=== PATIENT | female | born 1990 | race Caucasian/White ===

== ENCOUNTER 2017-08-01 05:47 | Inpatient (IN) ==
[2017-08-01] MEDS ORDERED: Naloxone 0.4 MG/ML INJ IVP PRN (05:48)
[2017-08-01] MEDS ORDERED: Famotidine 20 MG/2 ML VIAL IVP PRN (05:48)
[2017-08-01] MEDS ORDERED: Metoclopramide 10 MG/2 ML VIAL IVP PRN ×2 (05:48→11:45)
[2017-08-01] MEDS ORDERED: Ringers Solution, Lactated 1,000 ML IVC ONE (05:50)
[2017-08-01] MEDS ORDERED: Ringers Solution, Lactated 1,000 ML IVC SCH (06:00)
--- NOTE | 2017-08-01 06:06 | OB/GYN History & Physical ---
Date of Encounter: 08/01/17 Time of Encounter: 06:53 Assessment and Plan (1) History of 2 sections Current visit: Yes Status: Acute Patient has a history of 2 prior C-Sections. Presents to L&D today for a repeat with Dr. Petty LR bolus followed by 125ml/hr CBC UDS Consult to anesthesia for spinal for . Monitoring Plan for with Dr. Petty (2) 39 weeks gestation of Current visit: Yes Status: Acute Patient is 39w0d. Plan for with Dr. Petty History of Present Illness Chief complaint: Repeat C section HPI: Ms. Albarran is a 27 year old female at 39w0d presents to L&D for a repeat C- Section. She states that she has had two previous C Sections so she was scheduled for a repeat C section today with Dr. Petty. Patient states that she has has a couple of contractions since she has been here but has not timed them. Denies any loss of fluid, vaginal bleeding or discharge. Denies any complications with the . Reports good movement. States that she see Dr. Petty in the office. Blood type O positive GBS Negative Rubella I gG Antibody Positive VZV IgG antibody Positive Hep Bs antigen Nonreactive HPV high risk Negative Past Med Surg Social Fam HX - Past Medical History Attestation: Yes The following information was validated with the patient. Source: patient Medical history: no medical history - Past Surgical History Surgical History: (X 2) - Social History Smoking Status: Never smoker Alcohol use: none Drug use: none Obstetrical History - Pregnancies : 3 Para: 2 Term: 2 : 0 Ab's: 0 Livin - History/Complications History/Complications: Patient has had two previous C-Sections Medications and Allergies Vit #108/Iron/FA [ One Tablet] 1 tab PO DAILY 08/01/17 [History ] 3 Allergy/AdvReac Type Severity Reaction Status Date / Time No Known Allergies Allergy Verified 08/01/17 06:07 Review of System OB All systems PM: reviewed and no additional remarkable complaints except as stated - Constitutional Constitutional ROS IM: headache(s) (States she had a mild headache this morning but it has resolved) Exam - Constitutional Constitutional: well developed, well nourished, no acute distress, average body habitus - HEENT HEENT: Normocephaly, Mucus Membranes Moist - Neck Neck exam: full ROM - Lungs Respiratory exam: CTAB - Cardiovascular Cardiovascular exam: RRR, +S1, +S2 - Abdomen Abdomen: Present: bowel sounds normal, gravid, non tender - Extremities Extremities exam: full ROM, normal capillary refill, normal inspection Results All other labs normal.
[2017-08-01 06:44] LABS: Basophils % 0.3 %; Eosinophils # 0.1 K/mcL (0.0-0.6); Hematocrit 40.7 % (35.3-44.9); Hemoglobin 13.8 g/dL (11.5-15.4); Lymphocytes # 2.2 K/mcL (0.6-4.6); Lymphocytes % 18.4 %; Mean Corpuscular HGB Conc 33.9 g/dL (31.6-35.5); Mean Corpuscular Hemoglobin 30.4 pg (28.0-33.3); Mean Corpuscular Volume 89.6 fL (83.0-100.0); Mean Platelet Volume 10.9 fL (9.4-12.4); Monocytes # 0.5 K/mcL (0.0-1.3); Monocytes % 4.5 %; Neutrophils # 8.8 K/mcL (1.6-8.9); Platelet Count 219 K/mcL (140-400); Red Blood Count 4.54 M/mcL (3.82-4.97); Red Cell Distribution Width 13.3 % (11.5-14.5); Segmented Neutrophils % 74.8 %
[2017-08-01 06:56] LABS: Amphetamine Screen,Urine Negative ng/mL (Cutoff=1000); Barbiturate Screen,Urine Negative ng/mL (Cutoff=200); Benzodiazepines Screen,Urine Negative ng/mL (Cutoff=200); Cannabinoid Screen,Urine Negative ng/mL (Cutoff = 50); Cocaine Screen,Urine Negative ng/mL (Cutoff= 300); Opiate Screen,Urine Negative ng/mL (Cutoff=300); Phencyclidine Screen,Urine Negative ng/mL (Cutoff=25)
[2017-08-01] MEDS ORDERED: *HR* Promethazine 25 MG/ML VIAL IVP PRN (07:16)
[2017-08-01] MEDS ORDERED: *HR* HYDROmorphone (PF) 1 MG/ML SYRINGE IVP PRN ×2 (07:16→11:45)
[2017-08-01] MEDS ORDERED: *HR* Meperidine 25 MG/ML SYRINGE IVP PRN (07:16)
--- NOTE | 2017-08-01 07:16 | Anesthesia Evaluation PreOp ---
Date of Encounter: 08/01/17 Time of Encounter: 07:14 - Past History Planned Operation: repeat Cardiac History: Denies any Significant Hx Pulmonary History: Denies Any Significant HX AIRLINE STATION AGENT History: Denies Any Significant HX Other Medical History: Denies Any Significant HX Anesthesia History: No Prior Anesthetic Complications, Past Anesthesia Alcohol Use: none Drug use: none Medications and Allergies Vit #108/Iron/FA [ One Tablet] 1 tab PO DAILY 08/01/17 [History ] 3 Allergy/AdvReac Type Severity Reaction Status Date / Time No Known Allergies Allergy Verified 08/01/17 06:07 Anesthesia Results - Labs 08/01/17 06:29 Anesthesia Exam - HEENT Pupil (Motor): Pupils equal Mallampati: II Teeth: Normal Oral Opening: Greater than 3 - AIRLINE STATION AGENT LOC: Oriented AIRLINE STATION AGENT Motor: Normal RUE, Normal LUE, Normal RLE, Normal LLE, Normal Face AIRLINE STATION AGENT Sensory: Normal: RUE, LUE, RLE, LLE, Face - Cardiac Rhythm: Regular Murmur: None - Pulmonary Breath Sounds: bilateral Clear Respiratory Effort: Symmetrical Anesthesia Assess/Plan ASA Score: 2 Modified Jaime Scale for Level of Consciousness: Cooperative, oriented, and tranquil Anesthetic Plan: General, Regional Monitoring Plan: Standard Monitors Recovery Plan: PACU
[2017-08-01] MEDS ORDERED: ceFAZolin 2,000 MG in Water for inj. (sterile) 20 ML IVP ONE (07:17)
[2017-08-01] MEDS ORDERED: Ringers Solution, Lactated 1,000 ML ONE (07:19)
[2017-08-01] MEDS ORDERED: *HR* Oxytocin 10 UNIT/ML VIAL IM ONE (07:20)
[2017-08-01] MEDS ORDERED: *HR* Morphine Sulfate/PF 5 MG/10 ML AMPUL ONE (07:20)
[2017-08-01] MEDS ORDERED: EPHEDrine 50 MG/ML VIAL ONE (07:20)
[2017-08-01] MEDS ORDERED: *HR* FentaNYL (PF) 100 MCG/2 ML VIAL ONE (07:21)
[2017-08-01] MEDS ORDERED: Ondansetron 4 MG/2 ML VIAL ONE (07:52)
--- NOTE | 2017-08-01 08:58 | OB/GYN Procedure Note ---
Section - Date of procedure: 08/01/17 Preop diagnosis: desires repeat Post-op diagnosis: same Procedure: repeat low transverse Surgeon: Daron Petty Quill Worker: Hilario Walker Service Observer Chief: Balaji Liu Anesthesia Type: Spinal section complications: none Disposition: L&D Recovery Room Specimens: Placenta, Cord blood - (s) A Delivery Date: 08/01/17 Infant Delivery Time: 08:22 Presentation: vertex Position: LOT Route of delivery: other Gender: Male Viability: Viable Pounds: 6 Ounces: 9 Gram Weight: 2975 kg at 1 minute: 9 at 5 minutes: 9 Shoulder Dystocia: not encountered Specimens collected: cord blood Placenta: complete extraction Cord: 3 umbilical vessels - Narrative Narrative: Patient was taken to the operating room and placed in supine position with left uterine displacement following the administration of spinal anesthetic. Skin was then prepped and draped in usual sterile fashion, and a timeout procedure was performed. A Pfannenstiel incision was performed through the previous surgical scar, and extended down to the fascial layer until the abdominal cavity was entered. A bladder flap was then gently created with sharp dissection. A low transverse uterine incision was performed and extended bilaterally with bandage scissors. The membranes were then ruptured with clear fluid present. A viable male infant was delivered from a vertex presentation with scores of 9 and 9 at 1 and 5 minutes respectively and the weighed 6 pounds and 9 ounces. The oral cavity was gently suctioned with bulb suction, the cord was clamped and cut, and the was handed to the nursery team. A sample of cord blood was obtained and the placenta was manually removed. The uterine cavity was wiped clean with wet lap sponge. The uterine incision was closed in a layered fashion with 0 Vicryl suture in a running locking fashion. Good hemostasis was noted. The Paracolic gutters were then gently wiped clean with wet lap sponge. Inspection was then performed with good hemostasis still noted. The fascial layer was closed with 0 PDS Stratafix suture in a running nonlocking fashion. The subcutaneous layer was irrigated with sterile water and then closed with 4-0 Vicryl suture in a running nonlocking fashion, and continuing to close the skin in a running subcuticular fashion. A piece of Dermabond mesh was then applied over the incision site. Patient tolerated procedure well, all sponge needle and instrument counts reported as correct. Estimated blood loss was 300 mL. The urine in the Gerber catheter was clear and yellow, and she was taken to recovery room in stable condition.
[2017-08-01] MEDS ORDERED: Oxytocin 20 units/ LR 1000 mL 20 UNIT/1,000 ML BAG IVC ONE (09:43)
--- NOTE | 2017-08-01 10:52 | Anesthesia Evaluation Post Op ---
Date of Encounter: 08/01/17 Time of Encounter: 10:50 - Vital Signs Vital Signs: vss - Lungs Lungs: Clear Ascult./Percussion - Airway Airway: Non-obstructed - Cardiovascular Baseline Rhythm - Mental Status Mental Status: Alert & Oriented, Answers Appropriately - Pain Pain Scale used: Linda (Faces) - Nausea Vomiting Nausea Vomiting: Not Present - Hydration Hydration: Gerber catheter - Discharge PostOp Status: Transfer Patient to floor
[2017-08-01] MEDS ORDERED: Sennosides 8.6 MG TABLET PO PRN (11:45)
[2017-08-01] MEDS ORDERED: Simethicone 80 MG TAB.CHEW PO PRN (11:45)
[2017-08-01] MEDS ORDERED: Oxytocin 20 units/ LR 1000 mL 20 UNIT/1,000 ML BAG IVC SCH (11:45)
[2017-08-01] MEDS ORDERED: *HR* Morphine 2 MG/ML SYRINGE IVP PRN (11:45)
[2017-08-01] MEDS ORDERED: Ondansetron 4 MG/2 ML VIAL IVP PRN (11:45)
[2017-08-01] MEDS ORDERED: Prenatal Vit/FA 1 EACH TABLET PO SCH (11:45)
[2017-08-01] MEDS: Ibuprofen 600 MG TABLET PO PRN ×2 (12:18→21:15)
[2017-08-01] MEDS ORDERED: Lanolin 7 G OINT...G. TP PRN (20:30)
[2017-08-02] MEDS: Ibuprofen 600 MG TABLET PO PRN ×2 (04:34→12:55)
--- NOTE | 2017-08-02 09:09 | OB/GYN Progress Note ---
Date of Encounter: 08/02/17 Time of Encounter: 09:06 - Assessment and Plan (1) Status post section Current Visit: Yes Status: Acute Patient is S/P C Section POD #1. Patient states that she is doing well. Patient has been up ambulating without issues. Tolerating PO with out issue. Patient reports that she has been urinating and passing flatus but denies having a bowel movement. States that she has had a small amount of bleeding. Mild discomfort to the abdomen states that it has been controlled with ibuprofen. Has been breast feeding and states that it has been going well Continue to pain medication for discomfort. Patient expressed that she would like to go home today if possible. If patient is feeling well tonight possible discharge. Otherwise discharge tomorrow. (2) Breast feeding status of mother Current Visit: Yes Status: Acute Patient is currently breast feeding and states that it is going well. Subjective - Subjective Principal diagnosis: S/P Interval history: Patient is S/P C Section POD #1. Patient states that she is doing well. Patient has been up ambulating without issues. Tolerating PO with out issue. Patient reports that she has been urinating and passing flatus but denies having a bowel movement. States that she has had a small amount of bleeding. Mild discomfort to the abdomen states that it has been controlled with ibuprofen. Has been breast feeding and states that it has been going well. I examined this patient and my medical decision-making was reviewed with the Resident Physician. I agree with the documented findings, disposition and treatment plan as described except to the extent set forth below. BHARATH Ghotra Patient reports: appetite normal, voiding normally, pain well controlled, ambulating normally [place]: doing well Objective - Vital Signs Latest vital signs: Vital Signs Temp Pulse Pulse Resp BP Pulse Ox 08/02/17 04:35 98.2 F 64 14 121/59 98 08/02/17 00:25 98.0 F 50 14 111/53 97 08/01/17 19:50 98.5 F 50 14 118/87 99 08/01/17 14:35 98.7 F 55 55 16 125/77 99 08/01/17 12:26 97.2 F L 52 16 142/77 08/01/17 12:15 98.0 F 66 66 16 147/81 99 08/01/17 11:45 97.7 F 53 53 16 140/75 99 Intake and Output 08/01/17 08/02/17 08/02/17 23:59 07:59 15:59 Intake Total 1500 / 1500 Output Total 550 / 550 4200 / 4200 800 / 800 Balance -550 / -550 -2700 / -2700 -800 / -800 Intake: Oral 1500 / 1500 Output: Urine 800 / 800 Catheter 550 / 550 4200 / 4200 Other: Weight 58.377 kg Patient Weight 08/02/17 23:59 Weight 58.377 kg - Exam Lungs: bilateral: normal Chest: Normal S1, Normal S2 Extremities: Present: normal Abdomen: Present: normal appearance, soft, tenderness (Mild diffuse tenderness) Incision: Present: dry, dressed Uterus: Present: firm
[2017-08-02] MEDS: *HR* OxyCODONE/APAP 5/325 TABLET PO PRN ×2 (09:58→14:57)
[2017-08-02 12:43] VITALS: BP 123/78
--- NOTE | 2017-08-02 16:05 | Discharge Summary ---
Date of Encounter: 08/02/17 Time of Encounter: 16:02 - Discharge Diagnosis (1) Status post section Priority: Primary Status: Acute Comments: Patient requesting discharge home patient doing well pain well controlled Patient to follow up with Dr. Petty in 2 weeks (2) Breast feeding status of mother Priority: Secondary Status: Acute Comments: support prn - Discharge Medications Prescriptions: OxyCODONE/APAP 5/325 [Percocet 5/325 MG] 1 each PO Q4HR PRN #30 tablet PRN Reason: Moderate pain 4-6 Ibuprofen [Motrin] 600 mg PO Q6HR PRN #60 tablet PRN Reason: Cramping Home Medications: Vit #108/Iron/FA [ One Tablet] 1 tab PO DAILY 08/01/17 [History ] Docusate [Colace] 100 mg PO BID capsule 08/02/17 [Rx] Ferrous Sulfate 325 mg PO DAILY tablet 08/02/17 [Rx] Ibuprofen [Motrin] 600 mg PO Q6HR PRN #60 tablet 08/02/17 [Rx] Lanolin [Lansinoh] 1 appl TP TID PRN oint...g. 08/02/17 [Rx] OxyCODONE/APAP 5/325 [Percocet 5/325 MG] 1 each PO Q4HR PRN #30 tablet 08/02/17 [Rx] Simethicone [Gas-X] 80 mg PO TID PRN tab.chew 08/02/17 [Rx] Allergies/Adverse Reactions: 3 Allergy/AdvReac Type Severity Reaction Status Date / Time No Known Allergies Allergy Verified 08/01/17 06:07 Data Procedures and tests throughout hospitalization: Laboratory Tests 08/01/17 08/01/17 06:29 06:29 WBC 11.8 H RBC 4.54 Hgb 13.8 Hct 40.7 MCV 89.6 MCH 30.4 MCHC 33.9 RDW 13.3 Plt Count 219 MPV 10.9 Immature Gran % 1.0 Seg Neutrophils % 74.8 Lymphocytes % 18.4 Monocytes % 4.5 Eosinophils % 1.0 Basophils % 0.3 Neutrophils # 8.8 Lymphocytes # 2.2 Monocytes # 0.5 Eosinophils # 0.1 Basophils # 0.0 Urine Opiates Screen Negative Ur Barbiturates Screen Negative Ur Phencyclidine Scrn Negative Ur Amphetamines Screen Negative U Benzodiazepines Scrn Negative Urine Cocaine Screen Negative U Marijuana (THC) Screen Negative Date of admission: 08/01/17 05:47 Primary care physician: PCP NONE Discharging clinician: Roula Kenyon Anticipated date of discharge: 08/02/17 - Patient Status Disposition: Home, Self-Care Condition: Good Functional capacity at discharge: independent ambulation - Discharge Instructions Follow Up With: NONE,PCP [Primary Care Provider] - Daron Petty DO [Partnered Physician] - - Diet and Activity Activity: increase activity as tolerated Diet: regular diet Hospital Course Procedures: [facility] report reviewed prior to discharge by BHARATH Ghotra Reason for admission: section Delivery: section Episiotomy: none Laceration: none Other procedures: none complications: none Discharge diagnosis: IUP at term delivered Only baby: male (breast feeding) Time Attestation: Total time spent providing and/or coordinating discharge services: Time Spent: Less than 30 minutes - VTE Documentation of Mechanical Device: Intermittent pneumatic compression device Exam - Constitutional Vitals: Temp Pulse Resp BP Pulse Ox 98.1 F 51 16 123/78 98 08/02/17 12:30 08/02/17 12:30 08/02/17 12:30 08/02/17 12:30 08/02/17 04:35 General appearance IM: A&O X 3, pleasant, answers questions appropriately - Respiratory Respiratory exam: Present: CTAB - Cardiovascular Cardiovascular exam IM: Present: RRR, +S1, +S2 - Uterine Tone: Firm Uterus Position: 1 Finger Below Umbilicus, Midline
== END 2017-08-02 17:23 | disposition home or self-care (01) | DRG 766 ==
LOC: 1NENULAB 05:47 → 1NENUOBS 12:02

== ENCOUNTER 2020-02-03 05:46 | Inpatient (IN) ==
[2020-02-03] MEDS ORDERED: Naloxone 0.4 MG/ML INJ IVP PRN (06:03)
[2020-02-03] MEDS ORDERED: Famotidine 20 MG/2 ML VIAL IVP PRN (06:03)
[2020-02-03] MEDS ORDERED: Metoclopramide 10 MG/2 ML VIAL IVP PRN ×2 (06:03→12:31)
[2020-02-03] MEDS ORDERED: ceFAZolin 2,000 MG in 0.9 % Sodium Chloride 100 ML IVPB ONE (06:05)
[2020-02-03] MEDS: Ringers Solution, Lactated 1,000 ML IVC SCH ×2 (06:34→07:40)
[2020-02-03 06:45] LABS: Basophils % 0.4 %; Eosinophils # 0.1 K/mcL (0.0-0.6); Eosinophils % 1.3 %; Hematocrit 39.2 % (35.3-44.9); Hemoglobin 13.5 g/dL (11.5-15.4); Immature Granulocytes % 0.6 % (0-4); Lymphocytes # 2.1 K/mcL (0.6-4.6); Lymphocytes % 19.6 %; Mean Corpuscular HGB Conc 34.4 g/dL (31.6-35.5); Mean Corpuscular Hemoglobin 31.8 pg (28.0-33.3); Mean Corpuscular Volume 92.5 fL (83.0-100.0); Mean Platelet Volume 9.4 fL (9.4-12.4); Monocytes # 0.6 K/mcL (0.0-1.3); Monocytes % 5.4 %; Neutrophils # 7.6 K/mcL (1.6-8.9); Platelet Count 240 K/mcL (140-400); Red Blood Count 4.24 M/mcL (3.82-4.97); Red Cell Distribution Width 13.2 % (11.5-14.5); Segmented Neutrophils % 72.7 %; White Blood Count 10.5 K/mcL (4.3-11.1)
[2020-02-03 08:23] LABS: Amphetamine Screen,Urine Negative ng/mL (Cutoff=1000); Barbiturate Screen,Urine Negative ng/mL (Cutoff=200); Benzodiazepines Screen,Urine Negative ng/mL (Cutoff=200); Cannabinoid Screen,Urine Negative ng/mL (Cutoff = 50); Cocaine Screen,Urine Negative ng/mL (Cutoff= 300); Opiate Screen,Urine Negative ng/mL (Cutoff=300); Phencyclidine Screen,Urine Negative ng/mL (Cutoff=25)
[2020-02-03] MEDS ORDERED: Simethicone 80 MG TAB.CHEW PO PRN (12:31)
[2020-02-03] MEDS ORDERED: Sennosides 8.6 MG TABLET PO PRN (12:31)
[2020-02-03] MEDS ORDERED: Oxytocin 20 units/ LR 1000 mL 20 UNIT/1,000 ML BAG IVC SCH (12:31)
[2020-02-03] MEDS ORDERED: Ondansetron 4 MG/2 ML VIAL IVP PRN (12:31)
[2020-02-03] MEDS: Ibuprofen 600 MG TABLET PO PRN (19:06)
[2020-02-03] MEDS: *HR* OxyCODONE/APAP 5/325 TABLET PO PRN (21:30)
[2020-02-04] MEDS: Ibuprofen 600 MG TABLET PO PRN ×2 (02:10→08:10)
[2020-02-04] MEDS: *HR* OxyCODONE/APAP 5/325 TABLET PO PRN (05:10)
[2020-02-04 07:54] VITALS: BP 99/63
[2020-02-04] MEDS ORDERED: NON-FORMULARY MEDICATION 1 EACH EACH (Prenatal Vit 108/Iron/Folic Ac [Prenatal One Tablet] PO SCH (09:00)
[2020-02-04] MEDS ORDERED: Prenatal Vit/FA 1 EACH TABLET PO SCH (09:00)
== END 2020-02-04 11:47 | disposition home or self-care (01) | DRG 787 ==
LOC: 1NENULAB 05:46 → 1NENUOBS 11:56